=== PATIENT | female | born 1945 | race Caucasian/White ===

== ENCOUNTER 2016-09-09 18:53 | Emergency (ER) ==
[2016-09-09 19:06] VITALS: BP 166/81; TEMP 98.8; BMI 31.3
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
[2016-09-09] MEDS ORDERED: TORADOL IVP STA (19:38)
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
[2016-09-09] MEDS ORDERED: DILAUDID 1 MG/ML SYRINGE IM STA (20:39)
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
== END 2016-09-09 21:19 | disposition home or self-care (01) ==
LOC: ED 18:53
DX: S16.1XXA Strain of muscle, fascia and tendon at neck level, initial encounter (principal); V40.5XXA Car driver injured in collision with pedestrian or animal in traffic accident, initial encounter
CPT/HCPCS: 96372; 99283